=== PATIENT | female | born 1985 | race Caucasian/White ===

== ENCOUNTER 2020-12-06 19:10 | Emergency (ER) | payer BC, SELFPAY ==
--- NOTE | 2020-12-06 19:19 | ED.FEMALEGU ---
HPI - Female Genitourinary General Chief complaint: CERTIFIED REHABILITATION COUNSELOR Stated complaint: Possible Vaginal Infection Time Seen by Provider: 12/06/20 19:30 Source: patient, RN notes reviewed and old records reviewed Mode of arrival: ambulatory Limitations: no limitations History of Present Illness HPI Narrative: 35 year old female who presents to [facility] with complaints of vaginal drainage for the past 2 weeks of varying colors which is odorous white yellowish and greenish colored drainage, has had to wear a pad. Was recently treated for UTI also which she has frequently maybe it is a yeast infection she reports. Patient states that it is itchy, is raw in vaginal area, cardona when she urinates and intercourse is painful.Patient denies any concern for STD's. no new partners is in monogamous relationship. MD elicited complaint: dysuria, UTI , vaginal discharge and genital itching Pertinent past history: recurrent UTIs Onset (ago): week(s) (2) Location of symptoms: vaginal Severity: moderate Quality of pain: burning Consistency: progressively worsening Vaginal discharge: white, yellow and vaginal odor Vaginal bleeding: none Urinary symptoms: Dysuria Exacerbating factors: urination and intercourse Relieving factors: none Treatment prior to arrival: OTC vaginal cream Sexual activity: Yes Patient : No Related Data Home Medications Medication Instructions Recorded Confirmed venlafaxine [Effexor XR] 75 mg PO DAILY 07/23/19 12/06/20 metformin 500 mg PO DAILY 12/06/20 12/06/20 phentermine 30 mg PO DAILY 12/06/20 12/06/20 spironolactone 25 mg PO BID 12/06/20 12/06/20 Allergies Allergy/AdvReac Type Severity Reaction Status Date / Time No Known Allergies Allergy Verified 12/06/20 19:38 Review of Systems Review of Systems: Narrative: CONSTITUTIONAL: Denies fever, chills, or sweats. EYES: Denies visual changes, redness, or discharge. ENT: Denies rhinorrhea, congestion, sore throat, or otalgia. CARDIOVASCULAR: Denies chest pain, palpitations, or edema. RESPIRATORY: Denies cough or dyspnea. GASTROINTESTINAL: Denies abdominal pain, nausea, vomiting, or diarrhea. GENITOURINARY: Positive dysuria no visible hematuria.vaginal discharge is itchy and odorous SKIN: Denies rash or itching. MUSCULOSKELETAL: Chronic back pain,no other joint pain, or myalgia. NEUROLOGIC: Denies headache, numbness, or weakness. PSYCHIATRIC:Positive history of anxiety or depression. All systems reviewed & are unremarkable except as noted in HPI and below PMFSH Past Medical History Medical History (Updated 12/10/20 @ 15:21 by Sue Gupta NP) Anxiety with depression Back pain Migraine PCOS (polycystic ovarian syndrome) UTI (urinary tract infection) Surgical History Surgical History (Updated 12/10/20 @ 15:15 by Sue Gupta NP) History of endometrial ablation History of tubal ligation Previous back surgery Previous section X3 Social History Social History (Updated 12/10/20 @ 15:17 by Sue Gupta NP) Smoking packs per day: 0.5 Smoking cigarettes per day: 10.0 Years smoked: 15 Smoking pack-years: 7.50 Smoking status: Current every day smoker Tobacco type: cigarettes Alcohol intake: current Alcohol use details: rare social Substance use: never Living arrangements: with family Gender identity (if verbalized by the patient): Female Comments At time of signature, agree with nursing past medical, surgical, social and family history. There is no relevant family history pertinent to the presenting complaint Exam Narrative: Exam Narrative: GENERAL: Well-appearing, well-nourished, and in no acute distress. HEAD: Normocephalic, atraumatic. EYES: PERRLA and EOMI. ENT: Nares clear, no rhinorrhea or epistaxis. Mucous membranes moist. NECK: Supple.no lymphadenopathy CHEST: Clear to auscultation. No respiratory distress.SAO2 100% on room air HEART: Regular rate and rhythm. No murmur heard. Normal peripheral
[2020-12-06 19:20] VITALS: BP 137/76; PULSE 77; RESP 20; TEMP 36.8; O2SAT 100
== END 2020-12-06 20:00 | disposition home or self-care (01) ==
PROVIDERS: Emergency Provider Registered Nurse; PCP Nurse Practitioner Family
DX: N76.0 Acute vaginitis (principal); N39.0 Urinary tract infection, site not specified; F17.210 Nicotine dependence, cigarettes, uncomplicated; E28.2 Polycystic ovarian syndrome; F41.8 Other specified anxiety disorders
CPT/HCPCS: 81003; 87070; 87077; 87086; 87088; 87186; 99214; G0463

== ENCOUNTER 2021-01-09 19:29 | Emergency (ER) | payer BC, SELFPAY ==
[2021-01-09 19:37] VITALS: BP 118/77; PULSE 85; RESP 16; TEMP 36.9; O2SAT 100
--- NOTE | 2021-01-09 20:04 | ED.FEMALEGU ---
HPI - Female Genitourinary General Chief complaint: Urogenital-Female Stated complaint: Possible Bacterial Infection Time Seen by Provider: 01/09/21 19:50 Source: patient and RN notes reviewed Mode of arrival: ambulatory Limitations: no limitations History of Present Illness HPI Narrative: Patient presents today complaining of yellow/white vaginal discharge, external vaginal swelling and itching x3 days. Patient states, it feels like I have diaper rash. Prior to onset of these symptoms patient did take a Medrol Dosepak in preparation for root canal. She does not have an [facility] [facility] [facility] appointment available until January to initiate care. She was seen last month for similar symptoms and was diagnosed with bacterial vaginosis prior to a swab coming back. Her vaginal culture came back with normal vaginal juvenal. At that time she was treated with Flagyl. She denies any concerns for sexually transmitted infections. MD elicited complaint: vaginal discharge Related Data Home Medications Medication Instructions Recorded Confirmed venlafaxine [Effexor XR] 75 mg PO DAILY 07/23/19 01/09/21 metformin 500 mg PO DAILY 12/06/20 01/09/21 spironolactone 25 mg PO BID 12/06/20 01/09/21 Allergies Allergy/AdvReac Type Severity Reaction Status Date / Time No Known Allergies Allergy Verified 01/09/21 19:48 Review of Systems Review of Systems: Narrative: CONSTITUTIONAL: Denies body aches, fever, chills, or sweats. EYES: Denies visual changes, redness, or discharge. ENT: Denies rhinorrhea, congestion, sore throat, or otalgia. CARDIOVASCULAR: Denies chest pain, palpitations, or edema. RESPIRATORY: Denies cough or dyspnea. GASTROINTESTINAL: Denies abdominal pain, nausea, vomiting, or diarrhea. GENITOURINARY: Denies dysuria or hematuria.+ Vaginal discharge SKIN: Denies rash, itching, or wounds. MUSCULOSKELETAL: Denies back pain, joint pain, or myalgia. NEUROLOGIC: Denies headache, numbness, tingling, or weakness. PSYCH: Denies depression or anxiety. [facility] Past Medical History Medical History Anxiety with depression Back pain Migraine PCOS (polycystic ovarian syndrome) UTI (urinary tract infection) Surgical History Surgical History History of endometrial ablation History of tubal ligation Previous back surgery Previous section X3 Social History Social History Smoking packs per day: 0.5 Smoking cigarettes per day: 10.0 Years smoked: 15 Smoking pack-years: 7.50 Smoking status: Current every day smoker Tobacco type: cigarettes Alcohol intake: current Alcohol use details: rare social Substance use: never Gender identity (if verbalized by the patient): Female Comments At time of signature, I have reviewed and agree with nursing past medical, surgical, social and family history unless otherwise noted. Please see nursing chart for further information. There is no relevant family history pertinent to the presenting complaint Exam Narrative: Exam Narrative: GENERAL: Well-appearing, well-nourished, and in no acute distress. HEAD: Normocephalic, atraumatic. EYES: EOMI. No redness or drainage. Conjunctivae normal. ENT: Mucous membranes pink and moist. NECK: Normal AROM. CHEST: No respiratory distress. : Patient deferred exam. EXTREMITIES: Normal range of motion. No edema. SKIN: Warm, dry, no rash. Capillary refill normal. Normal skin turgor. NEURO: No focal deficits. Alert and oriented x3. Gait steady. PSYCH: Normal affect. No signs of depression or anxiety. Course Course Emergency Course: Patient's symptoms point to yeast vaginitis. She will be treated with Diflucan. She has been instructed to follow-up with [facility] [facility] [facility] as scheduled. Vital Signs Vital signs: Vital Signs Temperature 98.5 F 01/09/21 19:37 Pulse Ra
== END 2021-01-09 20:10 | disposition home or self-care (01) ==
PROVIDERS: Emergency Provider Nurse Practitioner; PCP Nurse Practitioner Family
DX: B37.3 Candidiasis of vulva and vagina (principal); F17.210 Nicotine dependence, cigarettes, uncomplicated; E28.2 Polycystic ovarian syndrome; F41.8 Other specified anxiety disorders
CPT/HCPCS: 99213; G0463

== ENCOUNTER 2023-07-12 12:00 | Emergency (ER) | payer OTHER, SELFPAY ==
[2023-07-12 12:22] VITALS: BP 130/73; PULSE 88; RESP 16; TEMP 36.4; O2SAT 100
--- NOTE | 2023-07-12 12:31 | ED.GENADULT ---
HPI - General Adult General Chief complaint: Upper Respiratory Infection Stated complaint: aches/diarrhea/headaches Source: patient, RN notes reviewed and old records reviewed Mode of arrival: ambulatory Limitations: no limitations History of Present Illness HPI narrative: 38-[facility] cough, congestion, nausea, vomiting, diarrhea, fatigue, headache started Sunday night. Patient taking [id number] medications with no relief. Patient denies abdominal pain, chest pain, weakness. MD complaint: Flu-like symptoms Onset (ago): day(s) (4) Related Data Home Medications Medication Instructions Recorded Confirmed baclofen 5 mg tablet mg 07/12/23 ergocalciferol (vitamin D2) 1,250 07/12/23 mcg (50,000 unit) capsule ketoconazole 2 % topical cream applic topical 07/12/23 nitrofurantoin 07/12/23 07/12/23 monohydrate/macrocrystals 100 mg capsule sulfasalazine 500 mg tablet 07/12/23 sumatriptan succinate 25 mg tablet mg PO 07/12/23 Allergies Allergy/AdvReac Type Severity Reaction Status Date / Time buspirone [From BuSpar] Allergy Anaphylaxis Verified 07/12/23 12:44 Review of Systems Constitutional: Constitutional: Reports no additional constitutional complaints, Reports body ache(s), Denies chills, Reports fatigue, Denies fever(s) and Reports headache(s) Eyes: Eyes: Reports no additional eye complaints and Denies blurry vision ENT: Reports system reviewed and no additional complaints, except as documented, Denies vertigo, Denies dizziness, Denies ear discharge, Denies otalgia, Denies facial pain, Denies headache(s), Reports nasal congestion, Denies nasal discharge, Denies sinus pain, Denies sinus pressure and Denies sore throat Cardiovascular: Cardiovascular: Reports no additional cardiovascular complaints, Denies chest pain, Denies chest pain at rest, Denies rapid heart rate and Denies dyspnea Respiratory: Respiratory: Reports no additional respiratory complaints, Denies chest congestion, Reports cough, Denies pain on inspiration, Denies pain with cough and Denies dyspnea Gastrointestinal: Gastrointestinal: Denies abdominal pain, Reports diarrhea, Reports nausea and Reports vomiting Integumentary/Breasts: Skin/Breast: Denies rash Neurologic: Reports system reviewed and no additional complaints, except as documented, Denies vertigo, Denies dizziness and Denies headache(s) Endocrine: Endocrine: Denies fatigue PMFSH Past Medical History Medical History Anxiety with depression Back pain Lupus Migraine PCOS (polycystic ovarian syndrome) UTI (urinary tract infection) Surgical History Surgical History History of endometrial ablation History of tubal ligation Previous back surgery Previous section X3 Social History Social History Smoking packs per day: 0.5 Smoking cigarettes per day: 10.0 Years smoked: 15 Smoking pack-years: 7.50 Smoking status: Current every day smoker Tobacco type: cigarettes Alcohol intake: current Alcohol use details: rare social Substance use: never Living arrangements: with family Gender identity (if verbalized by the patient): Female Comments At the time of my signature, I reviewed and agree with the nursing past medical, surgical, social, and family history. There is no relevant family history pertinent to the patient complaint. Exam Const: General: cooperative, healthy appearing, no acute distress and well nourished Nutritional Appearance: well nourished Orientation/consciousness: patient oriented x3 Limitations: no limitations HENMT: Head: normal to inspection and normocephalic Ears: external ears normal, TM's normal bilaterally, mastoids normal and Abnormal EAC present Face/Nose/Sinus: normal facial exam Face and sinus: norm
== END 2023-07-12 13:08 | disposition home or self-care (01) ==
PROVIDERS: Emergency Provider Registered Nurse; PCP Nurse Practitioner Family
DX: A08.4 Viral intestinal infection, unspecified (principal); Z20.822 Contact with and (suspected) exposure to COVID-19; F17.210 Nicotine dependence, cigarettes, uncomplicated; E28.2 Polycystic ovarian syndrome
CPT/HCPCS: 87426; 87804; 99213; G0463